=== PATIENT | female | born 1940 | race African-American/Black ===

== ENCOUNTER 2022-08-16 14:33 | Emergency (ER) | payer BC ==
[~2022-08-16] VITALS: Ht 157.5 cm; Wt 54.4 kg
== END 2022-08-16 15:24 | disposition home or self-care (01) ==
LOC: ER 14:48
DX: Z43.4 Encounter for attention to other artificial openings of digestive tract (principal); I10 Essential (primary) hypertension; Z85.038 Personal history of other malignant neoplasm of large intestine; Z86.73 Personal history of transient ischemic attack (TIA), and cerebral infarction without residual deficits
CPT/HCPCS: 99283

== ENCOUNTER 2022-08-17 11:55 | Emergency (ER) | payer BC, MEDICARE ==
[~2022-08-17] VITALS: Ht 157.5 cm; Wt 54.4 kg
[2022-08-17] MEDS ORDERED: DIATRIZOATE MEGL/DIATRIZOA SOD 30 ML BTL PO ONE (13:27)
== END 2022-08-17 14:13 | disposition home or self-care (01) ==
LOC: ER 12:13
DX: Z43.1 Encounter for attention to gastrostomy (principal); I10 Essential (primary) hypertension; Z86.73 Personal history of transient ischemic attack (TIA), and cerebral infarction without residual deficits; Z85.038 Personal history of other malignant neoplasm of large intestine
CPT/HCPCS: 43762; 74018; 99283; Q9963

== ENCOUNTER 2022-08-18 14:16 | Emergency (ER) | payer BC, MEDICARE ==
[~2022-08-18] VITALS: Ht 157.5 cm; Wt 54.4 kg
[2022-08-18] MEDS ORDERED: DIATRIZOATE MEGL/DIATRIZOA SOD 30 ML BTL PO ONE (15:38)
[2022-08-18 16:55] VITALS: BP 174/71
== END 2022-08-18 16:30 | disposition home or self-care (01) ==
LOC: ER 14:24
DX: Z43.1 Encounter for attention to gastrostomy (principal); I10 Essential (primary) hypertension; Z85.038 Personal history of other malignant neoplasm of large intestine; Z86.73 Personal history of transient ischemic attack (TIA), and cerebral infarction without residual deficits
CPT/HCPCS: 43762; 74018; 99283; Q9963

== ENCOUNTER → 2022-09-13 | Day surgery (SDC) | payer MEDICARE, BC ==
[2022-09-11 11:22] LABS: BASOPHILS % 0.8 % (0.0-1.0); EOSINOPHILS # (AUTO) 0.2 (0.0-0.4); EOSINOPHILS % 5.1 % (0.0-6.0); HEMATOCRIT 40.9 % (34.2-44.1); LYMPHOCYTES % 26.4 % (18.0-39.1); MEAN CORPUSCULAR HGB CONC 31.8 g/dL (31-35); MEAN CORPUSCULAR VOLUME 94.5 fL (81-99); MONOCYTES # (AUTO) 0.5 (0.2-0.8); MONOCYTES % 11.4 % (4.4-11.3); NEUTROPHILS # (AUTO) 2.2 (2.1-6.9); PLATELET COUNT 148 x10e3/uL (140-360); RED BLOOD COUNT 4.33 x10e6/uL (3.6-5.1); RED CELL DISTRIBUTION WIDTH 13.3 % (11.7-14.4)
[~2022-09-13] MED LIST: ASPIRIN EC81 MG PO; ATENOLOL50 MG PO; BENZOCAINE/TETRACAINE/BUTAMBEN AERO SPRAY 56 GM CAN ONE; CENTRUM ADULTS1 EACH PO; CLOPIDOGREL75 MG PO; GLYCOPYRRO0.2 MG/1 M PO; LACTATED RINGER'S 1,000 ML ONE; LISINOPRIL10 MG PO; PRAVASTATIN SOD40 MG PO; VITAMIN B122500 MCG PO
[2022-09-13 17:45] VITALS: BP 134/75
== END | disposition home or self-care (01) ==
LOC: OR 13:18
PROVIDERS: ATTEND Internal Medicine Gastroenterology
DX: K94.23 Gastrostomy malfunction (principal); K29.70 Gastritis, unspecified, without bleeding; K20.90 Esophagitis, unspecified without bleeding; K44.9 Diaphragmatic hernia without obstruction or gangrene; Z85.038 Personal history of other malignant neoplasm of large intestine; Z71.3 Dietary counseling and surveillance; I69.320 Aphasia following cerebral infarction; I69.391 Dysphagia following cerebral infarction; I69.354 Hemiplegia and hemiparesis following cerebral infarction affecting left non-dominant side; R13.10 Dysphagia, unspecified; I10 Essential (primary) hypertension; Z88.2 Allergy status to sulfonamides; Z01.812 Encounter for preprocedural laboratory examination; Z79.02 Long term (current) use of antithrombotics/antiplatelets; Z79.82 Long term (current) use of aspirin; Z80.0 Family history of malignant neoplasm of digestive organs
CPT/HCPCS: 36415; 43246; 85025; J7121; 43239